=== PATIENT | male | born 2000 | race Hispanic/Latino ===

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

== ENCOUNTER 2024-04-15 02:33 | Emergency (ER) | payer OTHER, SELFPAY ==
[2024-04-15] VITALS (7 sets, daily range): BP systolic 131–143; BP diastolic 71–73; PULSE 57–72; RESP 16; TEMP 36.4; O2SAT 95–100; BMI 34.0
--- NOTE | 2024-04-15 02:39 | ED.GENADULT ---
HPI - General Adult General Chief complaint: Urogenital-Male Stated complaint: frequent urination, feverish Time Seen by Provider: 04/15/24 02:38 History of Present Illness HPI narrative: 23-year-old gentleman with a history of kidney stone past when he was 17 years old presents with 3 days of frequency and urgency without dysuria. Today noticed some body aches, tightness and discomfort in the left flank started around midnight. He has noticed no hematuria, nausea, vomiting, diarrhea or constipation. He reports no penile discharge. States that he was feeling cold all day and even with multiple blankets he was still shivering. Related Data Previous Rx's Medication Instructions Recorded levofloxacin 500 mg tablet 500 mg PO DAILY #6 tabs 04/15/24 Allergies Allergy/AdvReac Type Severity Reaction Status Date / Time No Known Drug Allergies Allergy Verified 09/27/18 18:46 Review of Systems Review of Systems Narrative: Pertinent positive and negative findings as per HPI Patient History Medical History (Updated 04/15/24 @ 04:14 by Trena Stock MD) Kidney stone Social History Smoking Status: Never smoker Smoking Status: Never smoker alcohol intake frequency: 0-2 drinks per day Substance Use Type: does not use Exam Narrative Exam Narrative: General: Alert appropriate in no acute distress Respiratory: Able to speak in full sentences, no obvious respiratory distress Abdomen: Mild left flank tenderness, no rebound or guarding Skin: No obvious rashes, warm and dry Neurologic: Grossly intact no obvious asymmetries or abnormalities Psych: appropriate insight and affect, cooperative Medical Decision Making [facility] Narrative Medical decision making narrative: CC: Frequency, left flank pain Complicating co-morbidities: History of a kidney stone with the age of 17, Data collected from: patient Differential considered: Kidney stone, bladder stone, urinary tract infection, pyelonephritis, prostatitis, STI Exam documented above, pertinent findings include: Mild left flank pain, he does not have an acute abdomen. Postvoid residual is 367 Lab Test results independently reviewed as above. Pertinent findings: Urine dip is positive only for blood CBC is unremarkable, no leukocytosis no significant anemia Chemistries are reassuring. Appropriate creatinine. Imaging studies independently reviewed: CT scan shows prominent prostate measuring 4.7 cm in width. No evidence of urinary tract stone, hydronephrosis or perinephric that is stranding Treatments: 500 mg of IV ceftriaxone for presumptive treatment of gonorrhea, we will place him on 7 days of levofloxacin for prostatitis which is an acceptable alternative regimen for chlamydia treatment as well. Discussion: 23-year-old gentleman with urinary frequency for 3 days no significant findings otherwise. Gonorrhea and chlamydia testing is pending. He denies any new sexual partners or discharge from his penis. We will go ahead and treat empirically for both gonorrhea and chlamydia with presumption that this will also treat prostatitis. If this empiric treatment does not improve his symptoms I think the next step would be a trial of Flomax and if Flomax is required at the age of 23 urology referral for enlarged prostate is certainly going to be warranted. Reviewed all of these findings and recommendations with him. Questions were answered and he is safe for discharge at this time Discharge Plan Departure Patient Disposition: Home Clinical Impression: Urethritis Instructions: DI for Urinary Tract Infection (UTI), DI for Urinary Retention in Men Activity Restrictions/Additional Instructions: Thank you for coming in today I still do not have a completely clear explanation for why you are having such significant urinary frequency. Your urine does not suggest a bladder infection. The possibility of chlamydia is entertained. The test for both gonorrhea and chlamydia will return by tomorrow. If positive we will call you. You have been empirically treated for gonorrhea with 500 mg of ceftriaxone in the emergency department. I have also started you on 7 days of levofloxacin to help with the possibility of prostatitis. It is also adequate coverage for chlamydia if that test should returned positive. If after the antibiotics are completed you were still having symptoms, the next treatment would be using a medicine such as Flomax to help with the large prostate. At 23 if you are having difficulty paying because of a big prostate, you are definitely going to need to see a urologist. This would be fairly unusual. While it is wonderful to be young and otherwise healthy, it is also a good idea to use a bit of prevention to make sure that you maintain that health. To that end I really would recommend finding a primary care physician to at least touch bases. If you find that you are getting worse or develop any new symptoms, please feel free to return to the emergency department for further evaluation. Prescriptions: New levofloxacin 500 mg tablet 500 mg PO DAILY Qty: 6 0RF Stand Alone Forms: Patient Portal/API
--- NOTE | 2024-04-15 02:48 | DI.CT.S_ITS ---
PROCEDURE: CT KIDNEY URETER BLADDER (KUB) INDICATIONS: left flank pain TECHNIQUE: Axial sections were acquired from the lung bases to the pubic symphysis. Coronal and sagittal reformats were performed. For radiation dose reduction, the following was used: automated exposure control, adjustment of mA and/or kV according to patient size. COMPARISON: None. FINDINGS: Image quality: Diagnostic. Lower Chest: Lung bases are clear. Small hiatal hernia. Mild gastroesophageal reflux. URINARY: Right Kidney: No stones or hydronephrosis. Right Ureter: No hydroureter. Left Kidney: No stones or hydronephrosis. Left Ureter: No hydroureter. Bladder: Normal wall thickness. No stones. ABDOMEN: Liver: Normal size. Hepatic steatosis. Gallbladder: Gallbladder is contracted. No gallstones. Biliary ducts: No biliary dilation. Pancreas: No ductal dilation. Spleen: Size is within normal limits. Adrenal Glands: No adrenal nodules. Stomach and Bowel: Normal small bowel and colonic caliber, without significant wall thickening. Normal appendix. Peritoneum: No abnormal intraperitoneal fluid. No free air. Ventral Wall: No hernia. Abdominal Nodes: No enlarged retroperitoneal or mesenteric lymph nodes. Vessels: Aorta and inferior vena cava are normal in size. PELVIS: Pelvic Organs: Unremarkable. Pelvic Nodes: Unremarkable. Miscellaneous: No inguinal hernias are seen. Bones: Unremarkable. IMPRESSION: 1. No obstructing stones or hydronephrosis. 2. Hepatic steatosis. 3. Mild gastroesophageal reflux. No significant discrepancy with the dental laboratory worker radiology preliminary report. Dictated by: Ita Breaux M.D. on 04/15/2024 at 7:57 Approved by: Ita Breaux M.D. on 04/15/2024 at 7:59
[2024-04-15 03:07] LABS: Bacteria Urine None Seen; Culture Indicated Urine Cult Not Indicated; RBC Urine 0-1/HPF (0-5/HPF); Squamous Epithelial Cell Urine 0-1 /HPF (0-5/HPF); Urine Volume 10mL (spun); WBC Urine None Seen (0-5/HPF)
[2024-04-15] MEDS: SODIUM CHLORIDE 0.9% 1,000 ML 1000 ML IV (03:30)
[2024-04-15] MEDS: KETOROLAC 30 MG/ML VIAL 15 MG IV (03:30)
[2024-04-15 03:39] LABS: Add Manual Diff / Slide Review NO; Basophils Absolute Auto 0 /uL (0-100); Basophils Percent Auto 0.3 % (0-2); Eosinophils Absolute Auto 100 /uL (0-450); Eosinophils Percent Auto 0.6 % (2-4); Hematocrit 44.2 % (41-53); Lymphocytes Absolute Auto 3200 /uL (1100-4500); Lymphocytes Percent Auto 30.5 % (25-40); Mean Corpuscular HGB Conc 33.9 % (30-36); Mean Corpuscular Hemoglobin 30.8 PG (26-34); Mean Corpuscular Volume 90.8 fL (80-100); Monocytes Absolute Auto 800 /uL (0-900); Monocytes Percent Auto 7.9 % (3-14); Neutrophils Absolute Auto 6300 /uL (1500-7000); Neutrophils Percent Auto 60.7 % (50-75); Platelet Count 306 X10^3/uL (150-400); Red Blood Cell Count 4.87 X10^6/uL (4.5-5.9); Red Cell Distribution Width 13.1 % (11.6-14.8); White Blood Cell Count 10.5 X10^3/uL (4.5-11.0)
[2024-04-15 03:46] LABS: Alanine Aminotransferase 44 IU/L (<50); Albumin Globulin Ratio 1.6 (1.0-2.8); Alkaline Phosphatase 81 U/L (38-126); Aspartate Aminotransferase 24 IU/L (17-59); BUN Creatinine Ratio 21.2 (6-22); Bilirubin Total 0.5 mg/dL (0.2-1.3); Blood Urea Nitrogen 18 mg/dL (9-20); Calcium 9.7 mg/dL (8.4-10.2); Carbon Dioxide 28 mmol/L (22-32); Chloride 105 mmol/L (98-107); Estimated Glomerular Filt Rate > 60 mL/min (>60); Globulin 3.2 g/dL (1.7-4.1); Glucose 116 mg/dL (70-100); HEMOLYSIS < 15 (0-50); Potassium 3.6 mmol/L (3.4-5.1); Sodium 139 mmol/L (137-145); Total Protein 8.2 g/dL (6.3-8.2)
[2024-04-15] MEDS: levoFLOXacin 250 MG TABLET 500 MG PO (04:25)
[2024-04-15] MEDS: cefTRIAXone 1,000 MG in SODIUM CHLORIDE 0.9% 100 ML 200 MG IV (04:26)
[2024-04-15 06:06] LABS: Urine N gonorrhoeae NOT DETECTED
[2024-04-15 06:11] LABS: Urine Chlamydia NOT DETECTED
== END 2024-04-15 04:38 | disposition home or self-care (01) ==
PROVIDERS: Emergency Provider Emergency Medicine
DX: N34.2 Other urethritis (principal)
CPT/HCPCS: 36415; 51798; 74176; 80053; 81003; 81015; 85025; 87491; 87591; 96374; 96375; 99284; J0696; J1885